=== PATIENT | female | born 1980 | race Caucasian/White ===

== ENCOUNTER → 2016-11-11 | Outpatient (CLI) | payer BC ==
[~2016-11-11] MED LIST: TAMO20TA47 PO
--- NOTE | 2016-11-11 14:17 | MAMMOGRAPHY REPORT ---
BILATERAL DIGITAL DIAGNOSTIC MAMMOGRAM TOMOSYNTHESIS WITH CAD: 11/11/2016 CLINICAL HISTORY: History of right breast cancer status post lumpectomy and radiation therapy. The patient reports no current complaints. TECHNIQUE: Breast tomosynthesis in addition to standard 2D mammography was performed. Current study was also evaluated with a Computer Aided Detection (CAD) system. Bilateral CC and MLO 2-D and jennifer synthesis images were obtained. COMPARISON: Comparison is made to exams dated: 05/10/2016 mammogram, 10/28/2015 ultrasound biopsy, 10/28 mammogram, and 10/27/2015 mammogram - [facility]. BREAST COMPOSITION: There are scattered areas of fibroglandular density in both breasts. FINDINGS: There are stable postsurgical changes in the right breast at approximately 11 to 12:00 fr om lumpectomy, including a stable density, architectural distortion, and surgical clips at the lumpe ctomy bed. Spot magnification views of the lumpectomy bed demonstrate no suspicious masses or clust ers of microcalcifications. Mild diffuse right breast skin and trabecular thickening is slightly im proved, and likely related to prior radiation therapy. The remainder of both breasts are also stabl e compared to prior exams, without suspicious masses, calcifications, or areas of architectural dist ortion noted. Scattered bilateral benign-appearing calcifications are not significantly changed. IMPRESSION: ACR-BI-RADS CATEGORY 3: PROBABLY BENIGN Stable posttreatment changes in the right breast, without mammographic evidence of malignancy in eit her breast. Recommend follow-up diagnostic mammograms of the right breast in 6 months to reevaluate the posttreatment changes. The patient has been verbally notified of the results. Approximately 10% of breast cancers are not detected with mammography. A negative mammographic repor t should not delay biopsy if a clinically suggestive mass is present. Molly Deluca M.D. /:11/11/2016 11:00:58 Kick Press Operator: Alysha ZAPATA)(Desiree), [facility] letter sent: Personal History 3 BI-RADS Code: ACR-BI-RADS Category 3: Probably Benign
== END | disposition home or self-care (01) ==
LOC: C.MAMM 10:35
PROVIDERS: ATTEND Obstetrics & Gynecology
DX: R92.8 Other abnormal and inconclusive findings on diagnostic imaging of breast (principal)

== ENCOUNTER → 2016-11-25 | Outpatient (CLI) | payer BC | END | disposition home or self-care (01) | LOC: C.PAPS 14:26 | PROVIDERS: ATTEND Obstetrics & Gynecology | DX: Z01.419 Encounter for gynecological examination (general) (routine) without abnormal findings (principal) ==

== ENCOUNTER → 2016-12-23 | Outpatient (CLI) | payer BC ==
[2016-12-23 11:27] LABS: HEMATOCRIT 36.1 % (37-47); MEAN CELL VOLUME 91.9 fL (80-100); MEAN CORPUSCULAR HEMOGLOBIN 31.3 pg (25-34); MEAN CORPUSCULAR HGB CONC 34.1 g/dl (32-36); MEAN PLATELET VOLUME 11.8 fL (7.4-10.4); PLATELET COUNT 148 K/uL (130-400); RED BLOOD COUNT 3.93 M/uL (4.2-5.4); WHITE BLOOD COUNT 3.18 K/uL (4.8-10.8)
== END | disposition home or self-care (01) ==
LOC: C.LAB1850 10:16
PROVIDERS: ATTEND Obstetrics & Gynecology
DX: N93.9 Abnormal uterine and vaginal bleeding, unspecified (principal)

== ENCOUNTER → 2017-05-12 | Outpatient (CLI) | payer BC ==
--- NOTE | 2017-05-12 12:11 | MAMMOGRAPHY REPORT ---
UNILATERAL RIGHT DIGITAL DIAGNOSTIC MAMMOGRAM TOMOSYNTHESIS WITH CAD: 05/12/2017 CLINICAL HISTORY: 36-year-old woman with a personal history of right breast cancer status post breast conservation therapy. She presents for continued close follow-up after treatment. TECHNIQUE: Right breast CC and MLO 2-D and tomosynthesis images, spot magnification right CC and ML v iews were obtained. Current study was also evaluated with a Computer Aided Detection (CAD) system. COMPARISON: Comparison is made to exams dated: 11/11/2016 mammogram, 05/10/2016 mammogram, 10/28/2015 ul trasound biopsy, 10/28/2015 mammogram, 10/27/2015 mammogram, and 10/27/2015 ultrasound - [facility]. BREAST COMPOSITION: There are scattered areas of fibroglandular density in the right breast. FINDINGS: A linear scar marker overlies the upper outer quadrant of the right breast. There is expec jim architectural distortion in the right upper outer middle one third of the breast, and associated surgical clips, at the site of prior lumpectomy. There are stable round benign-appearing microcalcif ications scattered throughout the inferior and medial right breast, stable comparing back to the base line mammograms performed on 11/06/2015, and most likely benign. No new suspicious mass, architectur al distortion or suspicious macrocalcifications are seen, particularly near the surgical site on the spot magnification views. IMPRESSION: ACR-BI-RADS CATEGORY 3: PROBABLY BENIGN Stable posttreatment changes in the right breast, without mammographic evidence of malignancy. Recom mend right diagnostic mammograms including spot magnification views in 6 months, to ensure stability after treatment. Annual left mammography will be due at that time. These results and recommendations were discussed with the patient at the time of the exam. Approximately 10% of breast cancers are not detected with mammography. A negative mammographic report should not delay biopsy if a clinically suggestive mass is present. Afua White M.D. ay/:05/12/2017 08:55:09 Web Content Editor: Lesli Wilkins, [facility] letter sent: Follow Up Recommended 3 BI-RADS Code: ACR-BI-RADS Category 3: Probably Benign
== END | disposition home or self-care (01) ==
LOC: C.MAMM 08:06
PROVIDERS: ATTEND Surgery
DX: Z08 Encounter for follow-up examination after completed treatment for malignant neoplasm (principal); Z85.3 Personal history of malignant neoplasm of breast

== ENCOUNTER → 2017-06-15 | Outpatient (CLI) | payer BC | END | disposition home or self-care (01) | LOC: C.LABSPEC 17:46 | PROVIDERS: ATTEND Physician Assistant | DX: N89.8 Other specified noninflammatory disorders of vagina (principal) ==

== ENCOUNTER → 2017-09-07 | Outpatient (CLI) | payer BC ==
[~2017-09-07] MED LIST changes: -TAMO20TA47 PO; +TAMO20TA9 PO
[2017-09-07 14:35] VITALS: BP 118/79; PULSE 77; TEMP 37.1; O2SAT 100
--- NOTE | 2017-09-07 16:11 | Radiation Oncology Follow-Up ---
Radiation Oncology Follow-Up Date of Visit Sep 07, 2017. Reason For Visit Annual follow-up Radiation Completion Date finished 02-13-2016 Diagnosis (1) Breast cancer Status: Resolved Onset Date: 10/28/2015 Histology Subtype: ductal Stage: l (B) Permanent Comment: DIAGNOSIS: Right breast, invasive ductal carcinoma, grade 1 , LVSI present, ER/MS positive, Her2 negative, pT1N1(mi)M0, stage IB Status post biopsy 10/28/2015 -Lumpectomy/SLN - 11/06/2015 -Oncotype DX - 13 -BRCA negative Status post completion of radiation therapy 02/13/2016 received 6640 cGy Last Edited By: Katelyn Gee on Feb 16, 2016 14:04 History of Present Illness Ms. Lanier initially self palpated a right breast mass in the beginning of this year. She did have a follow-up bilateral diagnostic mammogram with bilateral ultrasounds completed on 10/27/2015. In the right breast there was noted to be in area of microcalcifications measuring 3.2 cm no other obvious abnormality. Targeted ultrasound did show an area of palpable concern in the 10 to 10:30 position 2 cm from the nipple and revealed a cluster of hypoechoic solid masses with ill-defined borders which was concerning for cancer. She underwent an ultrasound-guided biopsy of the right breast mass on 10/28/2015 which did reveal invasive ductal carcinoma that was grade 1 and measured 0.2 cm on the biopsy specimen. There was also ductal carcinoma in situ. The tumor was estrogen receptor positive and progesterone receptor positive and HER-2 negative. She was then referred to Dr. Neri who discussed treatment options including a mastectomy and lumpectomy followed by adjuvant radiation therapy. She elected to undergo a lumpectomy with sentinel lymph node biopsy on 11/06/2015 which did reveal invasive ductal carcinoma that was grade 1 which measured 1.5 cm in the greatest dimension and was multifocal. There was DCIS present and there is also lymphovascular space invasion present. The margins were all negative. 2 sentinel lymph nodes were removed and 1 lymph node was positive for a micrometastasis which measured 1.5 mm with no extranodal extension identified. She was staged as a pathologic T1cN1(mi), stage IB. Subsequently she did have BRCA mutation studies which were negative. Also, she did undergo a Oncotype DX study and her recurrence risk score was 13. She was seen by Dr. Kiel Heart for consideration of medical oncology who only recommended adjuvant tamoxifen and no chemotherapy. We are now seeing her in consultation to discuss the role of radiation therapy. She underwent radiation therapy from 12/24/2015 to 02/13/2016. She received 6640 cGy. Interim History She has been doing well at this past in regards to her breast. She has noted no masses or tenderness and no change in the axilla. She's had no swelling of her arm. She is up-to-date on mammography. She had a mammogram 05/12/2017. This showed stable posttreatment changes in the right breast, without mammographic evidence of malignancy. Recommend right diagnostic mammogram including spot magnification views in 6 months, to ensure stability after treatment. He had a left mammogram will be due at that time. She is scheduled for a mammogram in October. She has had issues with heavy menstrual periods. She is being followed by Dr. Heart. In April she developed vaginal irritation and was diagnosed with a bacterial vaginosis. 2 different creams were used. She then had a vaginal yeast infection was treated with Diflucan. She also had to use Monistat 7. This improved. She has a follow-up appointment with Dr. Heart in gynecology once again to discuss the have repeat periods. Her medical oncologist was not in favor of any type of control pills or implanted estrogen device due to her history of breast cancer. Dr. Heart in gynecology had discussed a possible ablation if she continued to have issues. Allergies Coded Allergies: Tetanus Toxoid (Verified Allergy, Mild, REACTION AT INJECTION SITE, 11/28/09 ) Home Medications Scheduled Tamoxifen (Nolvadex), 20 MG PO DAILY Review of Systems Gastrointestinal: Symptoms: WNL Oral: Symptoms: No Problems Respiratory: Symptoms: WNL Urinary: Symptoms: WNL Skin: Symptoms: No Problems Other Skin Symptoms: Tenderness of right shoulder - gets stiff Breast: Right Upper Arm Measurement: 29.0 Right Mid Arm Measurement: 23.0 Right Wrist Measurement: 15.4 Left Upper Arm Measurement: 29.0 Left Mid Arm Measurement: 22.0 Left Wrist Measurement: 15.0 Arm Dominence: Right Patient Cosmetic Evaluation: Good Staff Cosmetic Evalaluation: Good Physical Exam Vital Signs Date Time Temp Pulse Resp B/P (MAP) Pulse Ox O2 Delivery O2 Flow Rate FiO2 09/07/17 14:35 37.1 77 16 118/79 100 Fatigue: None General Appearance: no apparent distress Eyes: normal inspection, EOMI ENT: normal ENT inspection, hearing grossly normal Neck: no adenopathy Respiratory/Chest: normal breath sounds, no accessory muscle use Breast: Breast examination reveals well-healed incisions of the right breast. She has very slight telangiectasia in the area of the incision. There are no masses or tenderness and no axillary adenopathy. She has no skin retractions or nipple changes. Using the [place] score of cosmesis she has a good outcome. Left breast showed no masses or tenderness and no axillary adenopathy. Cardiovascular: regular rate, rhythm, no gallop, no murmur Extremities: no pedal edema Neurologic/Psychiatric: no motor/sensory deficits, alert, normal mood/affect Skin: warm/dry Pain Management Side: Bilateral Pain Location: None Patient Preferred Pain Scale: 0 - 10 Additional Studies Patient: ROLANDO LANIER [facility] Rec: [id number] Address1: [address] [place] [address] Address2: [facility] ID: [id number] Date: 1980 Sex: F Ref Phy: Liam Neri M.D. Att Phy: Liam Neri M.D. Kate Phy: Tutu Hadley III, CRNP Inter Phy: Afua White MD [facility] Zip: [place] [address] SC: JohnMAMM Report #: [id number] Microbiology Director: ESTEFANÍA Diagnosis: 6 MONTH F/U RIGHT HX BREAST CA Service Date: 05/12/17 MNE: [id number] Ordering Dr: Liam Neri M.D. CC: Liam Neri M.D. CONF: DICTATED BY: Afua White MD MAMMOGRAPHY REPORT UNILATERAL RIGHT DIGITAL DIAGNOSTIC MAMMOGRAM TOMOSYNTHESIS WITH CAD: 05/12/2017 CLINICAL HISTORY: 36-year-old woman with a personal history of right breast cancer status post breast conservation therapy. She presents for continued close follow-up after treatment. TECHNIQUE: Right breast CC and MLO 2-D and tomosynthesis images, spot magnification right CC and ML views were obtained. Current study was also evaluated with a Computer Aided Detection (CAD) system. COMPARISON: Comparison is made to exams dated: 11/11/2016 mammogram, 05/10/2016 mammogram, 10/28/2015 ultrasound biopsy, 10/28/2015 mammogram, 10/27/2015 mammogram, and 10/27/2015 ultrasound - [facility]. BREAST COMPOSITION: There are scattered areas of fibroglandular density in the right breast. FINDINGS: A linear scar marker overlies the upper outer quadrant of the right breast. There is expected architectural distortion in the right upper outer middle one third of the breast, and associated surgical clips, at the site of prior lumpectomy. There are stable round benign-appearing microcalcifications scattered throughout the inferior and medial right breast, stable comparing back to the baseline mammograms performed on 11/06/2015, and most likely benign. No new suspicious mass, architectural distortion or suspicious macrocalcifications are seen, particularly near the surgical site on the spot magnification views. IMPRESSION: ACR-BI-RADS CATEGORY 3: PROBABLY BENIGN Stable posttreatment changes in the right breast, without mammographic evidence of malignancy. Recommend right diagnostic mammograms including spot magnification views in 6 months, to ensure stability after treatment. Annual left mammography will be due at that time. These results and recommendations were discussed with the patient at the time of the exam. Approximately 10% of breast cancers are not detected with mammography. A negative mammographic report should not delay biopsy if a clinically suggestive mass is present. Afua White M.D. ay/:05/12/2017 08:55:09 Livestock Farm Workers: Lesli Wilkins, [facility] letter sent: Follow Up Recommended 3 BI-RADS Code: ACR-BI-RADS Category 3: Probably Benign Dictated by: Afua White MD Signed by: Afua White MD Assessment & Plan Plan: The patient is also seen today by Dr. Heart. We discussed the issues of the heavy periods. She'll follow-up with Dr. Heart in gynecology. We discussed that she maintain require endometrial biopsy or D&C prior to the ablation due to the tamoxifen therapy. She will continue follow-up with Dr. Heart in medical oncology. We discussed the telangiectasia is a later side effect of radiation. We asked her to return to our office in 1 year. She may call if she has any questions or concerns in the interim. Assessment & Plan (Attending) ADDENDUM: I agree with note created by Katelyn Gee PA-C. I reviewed the patient's chart and information with her. I have examined and evaluated the patient. I reviewed relevant clinical information and answered the patient's and /or family's questions. BARREL ENDSHAKER ADJUSTER Total Time In Follow-Up I spent 20 minutes speaking to the patient performing examination. I spent 15 minutes reviewing information and completeness note. Total Time (Attending) In Follow-Up I spent 15 minutes examining and counseling the patient. BARREL ENDSHAKER ADJUSTER Copy To Liam Neri M.D.; Tutu Hadley III, CRNP; Kiel Heart M.D.; Doretha Heart M.D.(CHEMICAL LAB TECHNICIAN/OB) Problem Qualifiers (1) Breast cancer: Breast location: upper outer quadrant of breast Estrogen receptor status: positive Patient sex: female Laterality: right Qualified Codes: C50.411 - Malignant neoplasm of upper-outer quadrant of right female breast; Z17.0 - Estrogen receptor positive status [ER+]
== END | disposition home or self-care (01) ==
LOC: C.ONC 14:16
PROVIDERS: ATTEND Physician Assistant Medical
DX: Z08 Encounter for follow-up examination after completed treatment for malignant neoplasm (principal); Z92.3 Personal history of irradiation; Z85.3 Personal history of malignant neoplasm of breast

== ENCOUNTER → 2017-11-15 | Outpatient (CLI) | payer BC, OTHER ==
--- NOTE | 2017-11-15 14:39 | MAMMOGRAPHY REPORT ---
BILATERAL DIGITAL DIAGNOSTIC MAMMOGRAM TOMOSYNTHESIS WITH CAD: 11/15/2017 CLINICAL HISTORY: 36-year-old woman with a personal history of right breast cancer status post breast conservation treatment presents at time of annual bilateral exam, 2 years after treatment. TECHNIQUE: Bilateral breast tomosynthesis in addition to standard 2D mammography was performed. Spot magnification right CC and ML views were also obtained over the lumpectomy bed. Current study was a lso evaluated with a Computer Aided Detection (CAD) system. COMPARISON: Comparison is made to exams dated: 05/12/2017 mammogram, 11/11/2016 mammogram, 05/10/2016 m ammogram, 10/27/2015 mammogram, 10/27/2015 ultrasound, and 10/28/2015 mammogram - [facility]. BREAST COMPOSITION: There are scattered areas of fibroglandular density in both breasts. Minimal in volutional changes comparing to the first mammograms obtained 10/27/2015. FINDINGS: There is expected architectural distortion and surgical clips in the upper outer middle one third of the right breast, at the site of prior lumpectomy. Skin irregularity and mild diffuse skin thickening particular cysts in the right breast, likely related to prior treatment. There are stabl e benign round microcalcifications in the medial right breast, that are unchanged dating back to [place] 11/06[place]. No new suspicious mass, asymmetry, unexpected architectural distortion or cluster o f suspicious microcalcifications is seen bilaterally. IMPRESSION: ACR BI-RADS CATEGORY 2: BENIGN Stable mammographic appearance of the breasts, including stable post treatment changes in the right b reast, without mammographic evidence of malignancy. Bilateral mammography is recommended in one year , including repeat spot magnification views of the right breast. Therefore, recommend remaining a di agnostic patient in one year. These results and recommendations were discussed with the patient at the time of the exam. Approximately 10% of breast cancers are not detected with mammography. A negative mammographic report should not delay biopsy if a clinically suggestive mass is present. Afua White M.D. ay/:11/15/2017 10:59:02 Varnishing Unit Operator: Glenda BAKER(R)(M), [facility] letter sent: Normal 1/2 BI-RADS Code: ACR BI-RADS Category 2: Benign
== END | disposition home or self-care (01) ==
LOC: C.MAMM 09:18
PROVIDERS: ATTEND Physician Assistant Medical
DX: Z08 Encounter for follow-up examination after completed treatment for malignant neoplasm (principal); Z85.3 Personal history of malignant neoplasm of breast